=== PATIENT | female | born 1960 | race Caucasian/White ===

== ENCOUNTER 2020-07-02 04:10 | Observation (INO) ==
[2020-07-02] MEDS ORDERED: Ipratropium/Albuterol Neb 3 ML IH ONE ×2 (04:13→06:13)
[2020-07-02] MEDS ORDERED: methylPREDNISolone 125 MG/2 ML VIAL IVP ONE (04:13)
[2020-07-02] MEDS ORDERED: levoFLOXacin 500 MG/100 ML 500 MG/100 ML BAG IVPB ONE (04:13)
[2020-07-02 04:42] LABS: Basophils # 0.1 K/mcL (0.0-0.2); Basophils % 0.7 %; Eosinophils # 0.9 K/mcL (0.0-0.6); Eosinophils % 10.6 %; Hematocrit 39.9 % (35.3-44.9); Hemoglobin 13.7 g/dL (11.5-15.4); Immature Granulocytes % 0.2 % (0-4); Lymphocytes % 23.7 %; Mean Corpuscular HGB Conc 34.3 g/dL (31.6-35.5); Mean Corpuscular Hemoglobin 31.4 pg (28.0-33.3); Mean Corpuscular Volume 91.5 fL (83.0-100.0); Mean Platelet Volume 9.2 fL (9.4-12.4); Monocytes # 0.5 K/mcL (0.0-1.3); Monocytes % 5.8 %; Platelet Count 260 K/mcL (140-400); Red Blood Count 4.36 M/mcL (3.82-4.97); Red Cell Distribution Width 11.8 % (11.5-14.5); White Blood Count 8.6 K/mcL (4.3-11.1)
[2020-07-02 04:58] LABS: BUN/Creatinine Ratio 16 (6-26); Blood Urea Nitrogen 16 mg/dL (6-20); Carbon Dioxide 28 mEq/L (23-29); Chloride 102 mEq/L (98-107); Glucose 124 mg/dL (70-105); Osmolality,Calculated 295 (280-300); Potassium 3.4 mEq/L (3.5-5.1); Sodium 141 mEq/L (136-145); eGFR For African Americans > 60 (> 60); eGFR For Non-African Americans 58 (> 60)
[2020-07-02] MEDS ORDERED: cloNIDine HCL 0.1 MG TABLET PO STA (04:58)
[2020-07-02 07:38] VITALS: BP 133/89
[2020-07-02] MEDS ORDERED: Ondansetron ODT 4 MG TAB.RAPDIS SL PRN (07:43)
[2020-07-02] MEDS ORDERED: Naloxone 0.4 MG/ML INJ IVP PRN (07:43)
[2020-07-02] MEDS ORDERED: *HR* OxyCODONE/APAP 5/325 TABLET PO PRN (07:43)
[2020-07-02] MEDS ORDERED: ALPRAZolam 1 MG TABLET PO PRN (07:43)
[2020-07-02] MEDS ORDERED: Ipratropium/Albuterol Neb 3 ML IH PRN (08:45)
[2020-07-02] MEDS ORDERED: Ipratropium/Albuterol Neb 3 ML ONE (08:52)
[2020-07-02] MEDS: Losartan/HCTZ 50-12.5 TABLET PO SCH ×2 (09:00→09:04)
[2020-07-02] MEDS: Metoprolol 100 MG TABLET PO SCH ×2 (09:00→09:04)
[2020-07-02] MEDS: BuPROPion XL (24 HR) 150 MG TABLET PO SCH ×2 (09:00→09:05)
[2020-07-02] MEDS ORDERED: Budesonide/Formoterol 160/4.5 1 PUFF INH IH SCH (10:00)
[2020-07-02] MEDS: MethylPREDNISolone 40 MG/ML VIAL IVP SCH ×2 (11:30→16:54)
[2020-07-02] MEDS: Ipratropium/Albuterol Neb 3 ML IH SCH ×4 (12:28→16:37)
[2020-07-03] MEDS ORDERED: levoFLOXacin 500 MG/100 ML 500 MG/100 ML BAG IVPB SCH (09:00)
== END 2020-07-02 17:35 | disposition home or self-care (01) ==
LOC: EMEROOPIK 04:10 → INPPIK 04:10
PROVIDERS: ADMIT Family Medicine; ATTEND Family Medicine